=== PATIENT | female | born 1960 | race Caucasian/White ===

== ENCOUNTER 2019-11-27 14:54 | Emergency (ER) | payer MEDICARE ==
[~2019-11-27] VITALS: Ht 152.4 cm; Wt 73.6 kg
[2019-11-27 15:07] VITALS: BP 156/73
--- NOTE | 2019-11-27 16:01 | NUR ---
CALL TO TRIAGE, NOT IN LOBBY TIMES 2
--- NOTE | 2019-11-27 16:13 | NUR ---
THIRD CALL NOT IN LOBBY
== END 2019-11-27 16:13 | disposition left against medical advice (07) ==
LOC: ER 14:55
DX: R51 Headache (principal); K08.89 Other specified disorders of teeth and supporting structures; J34.89 Other specified disorders of nose and nasal sinuses; Z53.21 Procedure and treatment not carried out due to patient leaving prior to being seen by health care provider

== ENCOUNTER 2021-05-08 10:50 | Day surgery (SDC) | payer MEDICARE, OTHER ==
[2021-05-08] VITALS (9 sets, daily range): BP systolic 131–185; BP diastolic 58–100
[~2021-05-08] VITALS: Ht 152.4 cm; Wt 71.4 kg
[2021-05-08] MEDS ORDERED: fentaNYL/PF 50MCG/1 ML 2ML syringe ONE (11:00)
[2021-05-08] MEDS ORDERED: iohexol 350 MG/ML 50ML vial IV ONE (11:00)
[2021-05-08] MEDS ORDERED: heparin 1,000unit/ml 10ml vial 10 ML ONE (11:00)
[2021-05-08] MEDS ORDERED: midazolam 1 mg/ML 2ml injection ONE (11:00)
[2021-05-08] MEDS ORDERED: LIDOcaine 1% (10mg/ml)w/preservative injection 20ml MDV ONE (11:00)
[2021-05-08] MEDS ORDERED: iohexol 350MG/ML 100ml bottle IV ONE (11:00)
[2021-05-08] MEDS ORDERED: diphenhydrAMINE 25mg capsule PO PRN (11:15)
[2021-05-08] MEDS ORDERED: normal saline 1,000 ML IV SCH ×2 (11:15→12:45)
[2021-05-08] MEDS ORDERED: ATOR20TA PO (11:31)
[2021-05-08] MEDS ORDERED: LOSA25TA96 PO (11:31)
[2021-05-08] MEDS ORDERED: GARL1000 PO (11:31)
[2021-05-08] MEDS ORDERED: AMLO10TA13 PO (11:31)
[2021-05-08] MEDS ORDERED: OMEG1CAP46 PO (11:31)
[2021-05-08] MEDS ORDERED: VITA-268 PO (11:31)
[2021-05-08] MEDS ORDERED: METF500T PO (11:31)
[2021-05-08] MEDS ORDERED: CHOL100046 PO (11:31)
[2021-05-08] MEDS ORDERED: METO50TA16 PO (11:31)
[2021-05-08 11:38] LABS: ALBUMIN 4.2 G/DL (3.4-5.0); ANION GAP 11 (8-16); BLOOD UREA NITROGEN 14 MG/DL (7-18); BUN/CREATININE RATIO 16.3 (6.6-38.0); CHLORIDE 106 MMOL/L (99-107); CREATININE 0.86 MG/DL (0.40-0.90); GLUCOSE 139 MG/DL (70-104); SODIUM 143 MMOL/L (135-145); TOTAL CARBON DIOXIDE 25.6 MMOL/L (24-32); eGFR 67 ML/MIN
[2021-05-08] MEDS ORDERED: ondansetron/PF 4mg/2ml inj IV PRN (12:45)
[2021-05-08] MEDS ORDERED: proCHLORperazine 10 MG/2 ml inj IV PRN (12:45)
[2021-05-08] MEDS ORDERED: HYDROcodone/acetaminophen 10/325mg tab PO PRN (12:45)
[2021-05-08] MEDS ORDERED: HYDROcodone/acetaminophen 5mg/325mg tablet PO PRN (12:45)
== END 2021-05-08 16:20 | disposition home or self-care (01) ==
LOC: SSTAY O 10:50
PROVIDERS: ATTEND Internal Medicine Cardiovascular Disease
DX: R94.39 Abnormal result of other cardiovascular function study (principal); R07.89 Other chest pain; I25.10 Atherosclerotic heart disease of native coronary artery without angina pectoris; I08.0 Rheumatic disorders of both mitral and aortic valves; I10 Essential (primary) hypertension; E78.5 Hyperlipidemia, unspecified; E11.9 Type 2 diabetes mellitus without complications; I69.354 Hemiplegia and hemiparesis following cerebral infarction affecting left non-dominant side; Z87.891 Personal history of nicotine dependence; Z79.84 Long term (current) use of oral hypoglycemic drugs; Z79.899 Other long term (current) drug therapy
CPT/HCPCS: 80048; 82948; 83735; 85610; 93005; 93458; 93571; 99152; 99153; C1751; C1760; C1769; C1894; J1644; J2001; J2250; J3010; J7030; Q0163; Q9967; A4620; A6258

== ENCOUNTER 2021-07-29 13:49 | Outpatient (CLI) | payer MEDICARE, OTHER ==
[~2021-07-29 13:49] MED LIST: AMLO10TA13 PO; ATOR20TA PO; CHOL100046 PO; GARL1000 PO; LOSA25TA96 PO; METF500T PO; METO50TA16 PO; OMEG1CAP46 PO; VITA-268 PO
[2021-07-29 14:20] LABS: TOTAL HEMOGLOBIN 14.7 G/dl (12.0-16.0)
== END 2021-07-29 23:59 | disposition home or self-care (01) ==
LOC: RT 13:49
PROVIDERS: ATTEND Internal Medicine Cardiovascular Disease
DX: R94.2 Abnormal results of pulmonary function studies (principal)
CPT/HCPCS: 85018; 94010; 94727; 94729

== ENCOUNTER 2025-02-06 15:29 | Outpatient (CLI) | payer MEDICARE, OTHER ==
[~2025-02-06 15:29] MED LIST changes: -GARL1000 PO; +GARL10002 PO; +LOSA-415 PO; -LOSA25TA96 PO; +iohexol 300mg/ml 100ml inj. ONE
--- NOTE | 2025-02-06 20:28 | RADIOLOGY REPORT ---
EXAM: CT CT NECK SOFT TISSUES W/ IV CONTRAST INDICATION: NONTOXIC SINGLE THYROID NODULE Exam Date: 02/06/2025 03:52 PM COMPARISON: None TECHNIQUE: CT of the neck with intravenous contrast. RADIATION DOSE: CTDIvol: 16.2 mGy, DLP: 434 mGy*cm CONTRAST: Type of contrast: Omnipaque 350 Contrast injected: 100 ml FINDINGS: Heterogeneous hypoattenuating left thyroid lobe lesion is seen which measures 14.0 x 12.4 mm. Multiple slightly prominent bilateral cervical lymph nodes are seen, the largest measuring up to 1.2 cm in the left 4A. These lymph nodes are not enlarged by CT size criteria. The fat planes of the neck appear intact. The airway and larynx are unremarkable. The parotid and submandibular glands are unremarkable. The vascular structures of the neck appear patent. The visualized lung apices are clear. The limited visualized portions of the brain are unremarkable. The osseous structures are unremarkable. IMPRESSION: 1. Heterogeneous hypoattenuating left thyroid lobe lesion is seen which measures 14.0 x 12.4 mm. Nas mmend thyroid ultrasound for further evaluation. 2. Multiple slightly prominent bilateral cervical lymph nodes are seen, the largest measuring up to 1 .2 cm in the left 4A level. These lymph nodes are not enlarged by CT size criteria.
== END 2025-02-06 23:59 | disposition home or self-care (01) ==
LOC: RAD 15:29
PROVIDERS: ATTEND Student in an Organized Health Care Education/Training Program
DX: E04.1 Nontoxic single thyroid nodule (principal); R59.0 Localized enlarged lymph nodes
CPT/HCPCS: 70491; Q9967